=== PATIENT | male | born 1965 | race Caucasian/White ===

== ENCOUNTER 2017-01-31 05:50 | Day surgery (SDC) | payer OTHER ==
[~2017-01-31] VITALS: Ht 167.6 cm; Wt 88.0 kg
[~2017-01-31 05:50] MED LIST: NAPROSYN PO; OMEPRAZOLE PO
[2017-01-31 06:40] VITALS: Ht 167.6 cm; Wt 88.0 kg
[2017-01-31 06:41] VITALS: BP 126/79; PULSE 74; RESP 14
[2017-01-31] MEDS ORDERED: LIDOCAINE 1% (MDV) 20 ML INJ ONE (07:19)
[2017-01-31] MEDS ORDERED: IODIXANOL LOCM 100 ML BTL ONE (07:19)
[2017-01-31] MEDS ORDERED: HEPARIN 1000 UNITS/ML 10 ML INJ ONE (07:19)
[2017-01-31] MEDS ORDERED: MIDAZOLAM 1 MG/ML 2 ML INJ ONE (07:21)
[2017-01-31] MEDS ORDERED: NITROGLYCERIN (IC) 100 MCG/ML INJ ONE (07:21)
[2017-01-31] MEDS ORDERED: FENTAnyl 50 MCG/ML VIAL ONE (07:21)
[2017-01-31] MEDS ORDERED: VERAPAMIL 5 MG INJ ONE (07:21)
[2017-01-31] MEDS ORDERED: SOD CHLORIDE 0.9% 500 ML ONE (07:22)
[2017-01-31 07:46] LABS: BASOPHILS % 0.7 % (0.0-2.0); EOSINOPHILS # 0.1 10^3/ul (0.0-0.5); HEMATOCRIT 45.2 % (42.0-52.0); HEMOGLOBIN 14.6 g/dl (14.0-18.0); LYMPHOCYTES # 2.7 10^3/ul (0.8-2.9); LYMPHOCYTES % 44.7 % (15.0-51.0); MEAN CORPUSCULAR HEMOGLOBIN 31.5 pg (29.0-33.0); MEAN CORPUSCULAR HGB CONC 32.3 g/dl (32.0-37.0); MEAN CORPUSCULAR VOLUME 97.4 fl (82.0-101.0); MEAN PLATELET VOLUME 10.4 fl (7.4-10.4); MONOCYTE # 0.5 10^3/ul (0.3-0.9); NEUTROPHIL # 2.6 10^3/ul (1.6-7.5); NEUTROPHILS % 43.3 % (39.0-77.0); PLATELET COUNT 221 10^3/UL (140-415); RED BLOOD COUNT 4.64 10^6/ul (4.70-6.10); RED CELL DISTRIBUTION WIDTH 12.9 % (11.5-14.5)
[2017-01-31 07:49] LABS: INR 0.91; PROTIME 12.3 Sec (12.2-14.2)
[2017-01-31 07:50] LABS: PARTIAL THROMBOPLASTIN TIME 28.5 Sec (25.0-35.0)
[2017-01-31 08:11] LABS: CALCIUM 9.3 mg/dl (8.4-10.2); CREATININE 0.9 mg/dl (0.61-1.24); POTASSIUM 4.2 mmol/L (3.5-5.1)
[2017-01-31] MEDS ORDERED: SOD CHLORIDE 0.9% 1,000 ML IV SCH (08:34)
--- NOTE | 2017-01-31 08:42 | OPR ---
Date/Time of Note Date/Time of Note DATE: 01/31/17 TIME: 08:39 Operative Report Procedure Date: Jan 31, 2017 Preoperative Diagnosis Chest pain Positive stress echo Postoperative Diagnosis Non-obstructive coronary atherosclerosis Operation/Procedure Performed left heart catheterization Surgeon see signature line Hardness Tester none Anesthesia Type: moderate sedation Estimated Blood Loss: minimal Transfusion none Specimen none Grafts/Implants none Complications none Pt Condition Post Procedure: stable Disposition: PACU Procedure Description SEDATION: Conscious sedation with fentanyl 50 mcg IV and Versed 1 mg IV. DESCRIPTION OF PROCEDURE: The patient placed on welder setter electron beam machine, pulse oximetry and supplemental oxygen as necessary. The right groin [] was prepped and draped in a sterile fashion and infiltrated with 1% lidocaine. Via the Seldinger technique, the right femoral artery was accessed. A 6-Cam[place]onian sheath was inserted and through this the right coronary catheter and left coronary catheter and pigtail were advanced into the right coronary artery and left coronary artery and the left ventricle. Placement confirmed by fluoroscopy and hemodynamics. CATHETERIZATION FINDINGS: 1. Left main: No significant disease. 2. LAD: Large caliber vessel with no significant disease. 3. Circumflex: Medium caliber vessel with no significant disease. 4. Obtuse marginal: Medium caliber vessel with no significant disease. 5. RCA: Large dominant vessel with 10% distal plaquing HEMODYNAMICS: LVEDP 12. No significant aortic valve gradient on pigtail pullback. TOTAL CONTRAST: 23 cc FLUOROSCOPY TIME: 4.3 minutes. COMPLICATIONS: None. FINAL RESULTS: Non-obstructive coronary atherosclerosis RECOMMENDATIONS: Medical management Discharge home LEONLEWIS MENDEZ Jan 31, 2017 08:42
[2017-01-31 08:46] VITALS: BP 117/84; PULSE 77; RESP 16
[2017-01-31 09:01] VITALS: BP 121/81; PULSE 60; RESP 14
[2017-01-31 09:16] VITALS: BP 119/81; PULSE 62; RESP 14
[2017-01-31 10:25] VITALS: BP 126/69; PULSE 71; RESP 18
--- NOTE | 2017-01-31 16:07 | RADRPT ---
Vent Rate: 79 bpm RR Interval: 0 msec WI Interval: 138 msec QRS Duration: 94 msec QT Interval: 380 msec QTC Interval: 435 msec P-R-T Cable: 42 - 0 - 38 degrees Normal sinus rhythm Normal ECG Electronically Signed By: Sam Richey [id number]
[2017-02-01] MEDS ORDERED: INFLUENZA VIRUS VACCINE 0.5 ML SYG IM* ONE (12:00)
== END 2017-01-31 11:02 | disposition home or self-care (01) ==
LOC: SDS 05:50 → CCL 05:58 → SDS 11:02
PROVIDERS: ATTEND Internal Medicine
DX: R07.9 Chest pain, unspecified (principal); R94.39 Abnormal result of other cardiovascular function study
CPT/HCPCS: 80048; 85025; 85610; 85730; 93005; 93458; C1887; J1644; J2250; J3010; J7040; Q9967; Z7610

== ENCOUNTER 2018-02-06 15:05 | Inpatient (IN) | END 2018-02-14 13:59 | disposition home health service (06) | DRG 872 ==

== ENCOUNTER 2018-03-16 11:26 | Emergency (ER) | END 2018-03-16 16:38 | disposition home or self-care (01) ==